=== PATIENT | male | born 1940 | race Two or more races ===

== ENCOUNTER 2025-02-01 23:41 | Inpatient (IN) | payer MEDICARE, OTHER ==
[~2025-02-01] VITALS: Ht 175.3 cm; Wt 68.0 kg
[2025-02-02] VITALS (11 sets, daily range): BP systolic 114–154; BP diastolic 49–103; TEMP 97.6–98.3; O2SAT 92–100
[2025-02-02 00:03] LABS: ABG BASE EXCESS -4.1 mmol/L (-2.0-3.0); ABG OXYGEN SATURATION 98.1 % (94.0-98.0); ABG PCO2 52.8 mmHg (35.0-48.0); ABG PH 7.257 (7.350-7.450); ABG PO2 145.3 mmHg (83.0-108.0); ABG TOTAL HEMOGLOBIN 9.0 G/dL (13.5-17.5); FLOW, BLOOD GAS 10.00 L/min (0.00-30.00); SITE, ABG RIGHT BRACHIAL
[2025-02-02] MEDS ORDERED: MAGN400O21 PO (00:23)
[2025-02-02] MEDS ORDERED: DOCU100C36 PO (00:23)
[2025-02-02] MEDS ORDERED: ALLO100T PO (00:23)
[2025-02-02] MEDS ORDERED: EZET10TA15 PO (00:23)
[2025-02-02] MEDS ORDERED: ISOS60TA72 PO (00:23)
[2025-02-02] MEDS ORDERED: LOPE2CAP40 PO (00:23)
[2025-02-02] MEDS ORDERED: DUTA0.5C2 PO (00:23)
[2025-02-02] MEDS ORDERED: OMEP40CA21 PO (00:23)
[2025-02-02] MEDS ORDERED: INSU100V39 SQ (00:23)
[2025-02-02] MEDS ORDERED: DOCU100T2 PO (00:23)
[2025-02-02] MEDS ORDERED: FERR325T24 PO (00:23)
[2025-02-02] MEDS ORDERED: TAMS-12 PO (00:23)
[2025-02-02] MEDS ORDERED: CARV3.12 PO (00:23)
[2025-02-02] MEDS ORDERED: ACET325C7 PO (00:23)
[2025-02-02] MEDS ORDERED: ERGO500093 PO (00:23)
[2025-02-02] MEDS ORDERED: CITA20TA19 PO (00:23)
[2025-02-02] MEDS ORDERED: ONDA4TAB5 PO (00:23)
[2025-02-02] MEDS ORDERED: APIX2.5T PO (00:23)
[2025-02-02] MEDS ORDERED: EMPA10TA PO (00:23)
[2025-02-02] MEDS ORDERED: NA P133E RC (00:23)
[2025-02-02 00:31] LABS: PLATELET COUNT (AUTO) 388 K/uL (150-450); RED BLOOD CELL COUNT(AUTO) 2.75 MIL/uL (4.5-6.0); RED CELL DISTRIBUTION WIDTH 19.1 % (11.5-15.0); WHITE BLOOD COUNT (AUTO) 9.0 K/uL (4.3-11.0)
[2025-02-02 00:40] LABS: CALCIUM, SERUM 7.2 mg/dL (8.5-10.1); CREATININE 2.1 mg/dL (0.6-1.3); SODIUM SERUM 141.0 mmol/L (136-145); UREA NITROGEN, BLOOD 62.0 mg/dL (7-18)
[2025-02-02 00:46] LABS: ASPARTATE AMINOTRANSFERASE 73.0 U/L (15-37); TOTAL PROTEIN, SERUM 4.3 g/dL (6.4-8.2)
[2025-02-02 00:49] LABS: LACTIC ACID 0.5 mmol/L (0.4-2.0)
[2025-02-02 00:56] LABS: INR 1.47 (0.91-1.10)
[2025-02-02] MEDS ORDERED: CEFEPIME 1 GM VIAL ONE (00:59)
[2025-02-02 01:05] LABS: APPEARANCE,URINE SLIGHTLY CLOUDY (CLEAR); BLOOD, URINE 3+ Ery/uL (NEGATIVE); LEUKOCYTE ESTERASE ,URINE 2+ (NEGATIVE); NITRITE, URINE POSITIVE (NEGATIVE); UGLUCOSE 2+ mg/dL (NEGATIVE)
[2025-02-02] MEDS: CEFEPIME 1 GM in IV D5W 50 ML IV ONE (01:14)
[2025-02-02] MEDS ORDERED: FUROSEMIDE 40 MG/4 ML VIAL ONE ×2 (01:17→10:41)
[2025-02-02] MEDS: FUROSEMIDE 40 MG/4 ML VIAL IV ONE (01:18)
[2025-02-02 01:28] LABS: ADD URINE CULTURE YES; SQUAMOUS EPITHELIAL CELL,UR 0-2 /HPF (None Seen)
[2025-02-02] MEDS ORDERED: DOSING PER PHARMACY-CEFEPIME IVPB XX PRN (02:00)
[2025-02-02] MEDS ORDERED: MAG HYDROX/AL HYDROX/SIMETH 30 ML UDC PO PRN (02:00)
[2025-02-02] MEDS ORDERED: ONDANSETRON HCL/PF 4 MG/2 ML VIAL IVP PRN (02:00)
[2025-02-02] MEDS ORDERED: MAGNESIUM HYDROXIDE 30 ML UDC PO PRN (02:00)
[2025-02-02] MEDS ORDERED: ACETAMINOPHEN 325 MG TABLET PO PRN (02:00)
[2025-02-02] MEDS ORDERED: HEPARIN SODIUM, PORCINE 5000 UNITS/1 ML VIAL ONE (02:41)
[2025-02-02] MEDS: HEPARIN SODIUM, PORCINE 5000 UNITS/1 ML VIAL SQ SCH (02:45)
[2025-02-02 02:59] LABS: ABG BASE EXCESS -2.0 mmol/L (-2.0-3.0); ABG OXYGEN SATURATION 97.9 % (94.0-98.0); ABG PCO2 47.1 mmHg (35.0-48.0); ABG PH 7.327 (7.350-7.450); ABG PO2 138.9 mmHg (83.0-108.0); ABG TOTAL HEMOGLOBIN 9.7 G/dL (13.5-17.5); SITE, ABG RIGHT BRACHIAL
[2025-02-02] MEDS ORDERED: ALBUTEROL HALF STRENGTH 1.25 MG/3 ML VIAL.NEB NEB PRN (04:00)
[2025-02-02] MEDS ORDERED: IPRATROPIUM NEB FS 0.5 MG/2.5 ML AMPUL.NEB NEB PRN ×2 (04:00→09:53)
[2025-02-02] MEDS: ALBUTEROL HALF STRENGTH 1.25 MG/3 ML VIAL.NEB NEB SCH (04:00)
[2025-02-02] MEDS: IPRATROPIUM NEB FS 0.5 MG/2.5 ML AMPUL.NEB NEB SCH ×2 (04:36→10:00)
[2025-02-02 05:34] LABS: PLATELET COUNT (AUTO) 450 K/uL (150-450); RED BLOOD CELL COUNT(AUTO) 3.13 MIL/uL (4.5-6.0); RED CELL DISTRIBUTION WIDTH 19.9 % (11.5-15.0); WHITE BLOOD COUNT (AUTO) 11.2 K/uL (4.3-11.0)
[2025-02-02 05:45] LABS: CALCIUM, SERUM 7.5 mg/dL (8.5-10.1); CREATININE 2.2 mg/dL (0.6-1.3); PHOSPHORUS 3.9 mg/dL (2.5-4.9); SODIUM SERUM 140.0 mmol/L (136-145); UREA NITROGEN, BLOOD 64.0 mg/dL (7-18)
[2025-02-02] MEDS ORDERED: AMIN30LI66 PO (08:22)
[2025-02-02] MEDS ORDERED: ACET325T53 PO (08:22)
[2025-02-02] MEDS ORDERED: BISA10SU11 RC (08:22)
[2025-02-02] MEDS ORDERED: MAGN400O6 PO (08:22)
[2025-02-02] MEDS ORDERED: MULT1TAB70 PO (08:22)
[2025-02-02] MEDS ORDERED: CRAN425C6 PO (08:22)
[2025-02-02 08:48] LABS: ABG BASE EXCESS -3.8 mmol/L (-2.0-3.0); ABG OXYGEN SATURATION 97.4 % (94.0-98.0); ABG PCO2 46.0 mmHg (35.0-48.0); ABG PH 7.306 (7.350-7.450); ABG PO2 111.0 mmHg (83.0-108.0); ABG TOTAL HEMOGLOBIN 10.0 G/dL (13.5-17.5); FRACTIONATED INSPIRED OXYGEN 40.0 %; SET RATE, BG 18.0
[2025-02-02] MEDS ORDERED: IPRATROPIUM NEB FS 0.5 MG/2.5 ML AMPUL.NEB ONE ×2 (08:54→12:12)
[2025-02-02] MEDS: FUROSEMIDE 100 MG/10 ML VIAL IV SCH (09:30)
[2025-02-02 09:50] LABS: IRON, SERUM 27.0 ug/dl (50-175)
[2025-02-02 10:15] LABS: LDL 27.0 mg/dL (0-99)
[2025-02-02] MEDS ORDERED: CEFEPIME 1 GM in IV D5W 50 ML IV SCH (13:00)
[2025-02-02] MEDS: CEFEPIME 2 GM in IV D5W 100 ML IV SCH (15:10)
[2025-02-02 15:11] LABS: CALCIUM, SERUM 8.0 mg/dL (8.5-10.1); CREATININE 2.5 mg/dL (0.6-1.3); SODIUM SERUM 139.0 mmol/L (136-145); UREA NITROGEN, BLOOD 73.0 mg/dL (7-18)
[2025-02-02] MEDS: BLOOD SUGAR DIAGNOSTIC 1 EACH STRIP IN SCH (16:28)
[2025-02-02] MEDS ORDERED: DEXTROSE 50%-WATER 50 ML DISP.SYRIN IV PRN (16:30)
[2025-02-02] MEDS: INSULIN REGULAR, HUMAN 100 UNIT/ML 3 ML VIAL SQ PRN (16:37)
[2025-02-02 17:53] LABS: ABG BASE EXCESS -3.1 mmol/L (-2.0-3.0); ABG OXYGEN SATURATION 91.5 % (94.0-98.0); ABG PCO2 36.4 mmHg (35.0-48.0); ABG PH 7.388 (7.350-7.450); ABG PO2 62.6 mmHg (83.0-108.0); ABG TOTAL HEMOGLOBIN 10.8 G/dL (13.5-17.5); FLOW, BLOOD GAS 1.00 L/min (0.00-30.00); FRACTIONATED INSPIRED OXYGEN 24.0 %; SITE, ABG RIGHT BRACHIAL
[2025-02-03] VITALS (33 sets, daily range): BP systolic 100–139; BP diastolic 41–79; TEMP 97.4–97.9; O2SAT 93–100
[2025-02-03 04:16] LABS: PLATELET COUNT (AUTO) 482 K/uL (150-450); RED BLOOD CELL COUNT(AUTO) 3.08 MIL/uL (4.5-6.0); RED CELL DISTRIBUTION WIDTH 18.8 % (11.5-15.0); WHITE BLOOD COUNT (AUTO) 9.6 K/uL (4.3-11.0)
[2025-02-03 04:36] LABS: ASPARTATE AMINOTRANSFERASE 72 U/L (15-37); CALCIUM, SERUM 7.8 mg/dL (8.5-10.1); CREATININE 2.7 mg/dL (0.6-1.3); PHOSPHORUS 3.9 mg/dL (2.5-4.9); SODIUM SERUM 140 mmol/L (136-145); TOTAL PROTEIN, SERUM 4.8 g/dL (6.4-8.2); UREA NITROGEN, BLOOD 79 mg/dL (7-18)
[2025-02-03 04:52] LABS: CREATINE KINASE, TOTAL 46 U/L (39-308)
[2025-02-03] MEDS: FUROSEMIDE 40 MG/4 ML VIAL IV SCH (09:14)
[2025-02-04] VITALS (22 sets, daily range): BP systolic 109–148; BP diastolic 44–68; TEMP 97.7–98.6; O2SAT 93–100
[2025-02-04 03:09] LABS: PLATELET COUNT (AUTO) 420 K/uL (150-450); RED BLOOD CELL COUNT(AUTO) 3.02 MIL/uL (4.5-6.0); RED CELL DISTRIBUTION WIDTH 18.9 % (11.5-15.0); WHITE BLOOD COUNT (AUTO) 9.2 K/uL (4.3-11.0)
[2025-02-04 03:20] LABS: ASPARTATE AMINOTRANSFERASE 59.0 U/L (15-37); CALCIUM, SERUM 7.8 mg/dL (8.5-10.1); PHOSPHORUS 4.8 mg/dL (2.5-4.9); SODIUM SERUM 141.0 mmol/L (136-145); TOTAL PROTEIN, SERUM 4.6 g/dL (6.4-8.2)
[2025-02-04 03:27] LABS: CREATININE 2.7 mg/dL (0.6-1.3)
[2025-02-04 03:38] LABS: UREA NITROGEN, BLOOD 89.0 mg/dL (7-18)
[2025-02-04] MEDS: FUROSEMIDE 100 MG/10 ML VIAL IV SCH (11:11)
[2025-02-05] VITALS (18 sets, daily range): BP systolic 119–135; BP diastolic 48–54; TEMP 97.5–98.4; O2SAT 89–100
[2025-02-05] MEDS ORDERED: DEXTROSE 50%-WATER 50 ML DISP.SYRIN IV PRN ×2 (00:30→14:00)
[2025-02-05] MEDS: *INSULIN REGULAR(HUMULIN R)HUM 100 UNIT/ML VIAL SQ PRN (00:43)
[2025-02-05 01:11] LABS: PTH, INTACT 48 pg/mL (15-65)
[2025-02-05 06:31] LABS: PLATELET COUNT (AUTO) 450 K/uL (150-450); RED BLOOD CELL COUNT(AUTO) 3.12 MIL/uL (4.5-6.0); RED CELL DISTRIBUTION WIDTH 18.7 % (11.5-15.0); WHITE BLOOD COUNT (AUTO) 8.3 K/uL (4.3-11.0)
[2025-02-05 06:43] LABS: ASPARTATE AMINOTRANSFERASE 53.0 U/L (15-37); CALCIUM, SERUM 7.4 mg/dL (8.5-10.1); CREATININE 2.8 mg/dL (0.6-1.3); PHOSPHORUS 3.8 mg/dL (2.5-4.9); SODIUM SERUM 139.0 mmol/L (136-145); TOTAL PROTEIN, SERUM 4.6 g/dL (6.4-8.2)
[2025-02-05 07:01] LABS: UREA NITROGEN, BLOOD 96.0 mg/dL (7-18)
[2025-02-05] MEDS: BLOOD SUGAR DIAGNOSTIC 1 EACH STRIP VI SCH (07:43)
[2025-02-05] MEDS: INSULIN REGULAR, HUMAN 100 UNIT/ML 3 ML VIAL SQ PRN (09:40)
[2025-02-05] MEDS: INSULIN GLARGINE, 100 UNIT/ML CARTRIDGE SQ SCH (12:16)
[2025-02-05 12:21] LABS: ABG BASE EXCESS 2.8 mmol/L (-2.0-3.0); ABG OXYGEN SATURATION 86.7 % (94.0-98.0); ABG PCO2 39.1 mmHg (35.0-48.0); ABG PH 7.455 (7.350-7.450); ABG PO2 52.6 mmHg (83.0-108.0); ABG TOTAL HEMOGLOBIN 10.3 G/dL (13.5-17.5); FRACTIONATED INSPIRED OXYGEN 21.0 %; SITE, ABG LEFT BRACHIAL
[2025-02-05 13:19] LABS: CALCIUM, SERUM 7.2 mg/dL (8.5-10.1); CREATININE 2.8 mg/dL (0.6-1.3); SODIUM SERUM 134.0 mmol/L (136-145)
[2025-02-05] MEDS: GLUCERNA SHAKE 237 ML CAN PO SCH (13:24)
[2025-02-05 13:25] LABS: UREA NITROGEN, BLOOD 96.0 mg/dL (7-18)
[2025-02-05 14:07] LABS: *SPE A/G RATIO 1.6 (0.7-1.7); *SPE ALBUMIN 2.8 g/dL (2.9-4.4); *SPE ALPHA-1-GLOBULIN 0.2 g/dL (0.0-0.4); *SPE ALPHA-2-GLOBULIN 0.3 g/dL (0.4-1.0); *SPE BETA GLOBULIN 0.5 g/dL (0.7-1.3); *SPE GLOBULIN, TOTAL 1.7 g/dL (2.2-3.9); *SPE M-SPIKE Not Observed g/dL (Not Observed); *SPE PROTEIN TOTAL 4.5 g/dL (6.0-8.5); *SPEGAMMA GLOBULIN 0.7 g/dL (0.4-1.8)
[2025-02-05] MEDS: INSULIN ASPART/LISPRO 100 UNIT/ML CARTRIDGE SQ PRN (14:22)
[2025-02-05] MEDS: BLOOD SUGAR DIAGNOSTIC 1 EACH STRIP IN SCH (14:22)
[2025-02-05] MEDS: MEROPENEM 500 MG in IV NS 0.9% 50 ML IV SCH (14:23)
[2025-02-05 18:03] LABS: APPEARANCE,URINE CLEAR (CLEAR); BLOOD, URINE 2+ Ery/uL (NEGATIVE); LEUKOCYTE ESTERASE ,URINE NEGATIVE (NEGATIVE); NITRITE, URINE NEGATIVE (NEGATIVE); UGLUCOSE TRACE mg/dL (NEGATIVE)
[2025-02-05 18:08] LABS: CREATININE, URINE 77.1 MG/DL (30.0-125.0); URINE SODIUM, RANDOM 9.0 mmol/l (40-220); URINE TOTAL PROTEIN 62.7 mg/dL (0-11.9)
[2025-02-05 18:22] LABS: ADD URINE CULTURE YES
[2025-02-05 18:23] LABS: COARSE GRANULAR CASTS,URINE Few /LPF (None Seen); FINE GRANULAR CASTS,URINE Few /LPF (None Seen)
[2025-02-05 19:00] LABS: EOSINOPHIL,URINE None Seen
[2025-02-05] MEDS ORDERED: INSULIN GLARGINE, 100 UNIT/ML CARTRIDGE SQ SCH (22:00)
[2025-02-06] VITALS (13 sets, daily range): BP systolic 116–142; BP diastolic 46–82; TEMP 97.5–98.2; O2SAT 90–97
[2025-02-06] MEDS: BUMETANIDE INJ 4 MG in IV D5W 24 ML IV ONE (07:32)
[2025-02-06 09:46] LABS: APPEARANCE,URINE CLEAR (CLEAR); BLOOD, URINE 1+ Ery/uL (NEGATIVE); LEUKOCYTE ESTERASE ,URINE NEGATIVE (NEGATIVE); NITRITE, URINE NEGATIVE (NEGATIVE); UGLUCOSE NEGATIVE (NEGATIVE)
[2025-02-06 09:56] LABS: CREATININE, URINE 65.8 MG/DL (30.0-125.0); URINE SODIUM, RANDOM 26.0 mmol/l (40-220); URINE TOTAL PROTEIN 82.1 mg/dL (0-11.9)
[2025-02-06 10:38] LABS: ADD URINE CULTURE NO; SQUAMOUS EPITHELIAL CELL,UR None Seen /HPF (None Seen)
[2025-02-06 12:39] LABS: EOSINOPHIL,URINE None Seen
[2025-02-06 16:01] LABS: PLATELET COUNT (AUTO) 363 K/uL (150-450); RED BLOOD CELL COUNT(AUTO) 3.47 MIL/uL (4.5-6.0); RED CELL DISTRIBUTION WIDTH 18.0 % (11.5-15.0); WHITE BLOOD COUNT (AUTO) 12.2 K/uL (4.3-11.0)
[2025-02-06 16:19] LABS: ASPARTATE AMINOTRANSFERASE 116.0 U/L (15-37); CALCIUM, SERUM 7.3 mg/dL (8.5-10.1); CREATININE 2.6 mg/dL (0.6-1.3); PHOSPHORUS 3.4 mg/dL (2.5-4.9); SODIUM SERUM 133.0 mmol/L (136-145); TOTAL PROTEIN, SERUM 4.7 g/dL (6.4-8.2)
[2025-02-06 16:36] LABS: UREA NITROGEN, BLOOD 95.0 mg/dL (7-18)
== END 2025-02-06 16:35 | DRG 291 ==
LOC: ER 23:48 → MS IN 02-02 03:53 → ICU 02-02 13:05 → TELE1 02-04 16:40
PROC: 5A09357 Assistance with Respiratory Ventilation, Less than 24 Consecutive Hours, Continuous Positive Airway Pressure (ICD-10-PCS; principal; 2025-02-02)
PROC: 5A09357 Assistance with Respiratory Ventilation, Less than 24 Consecutive Hours, Continuous Positive Airway Pressure (ICD-10-PCS; 2025-02-03)
DX: I13.0 Hypertensive heart and chronic kidney disease with heart failure and stage 1 through stage 4 chronic kidney disease, or unspecified chronic kidney disease (principal); I50.41 Acute combined systolic (congestive) and diastolic (congestive) heart failure; J96.01 Acute respiratory failure with hypoxia; J96.02 Acute respiratory failure with hypercapnia; D68.9 Coagulation defect, unspecified; L89.622 Pressure ulcer of left heel, stage 2; T82.598A Other mechanical complication of other cardiac and vascular devices and implants, initial encounter; N17.9 Acute kidney failure, unspecified; B96.20 Unspecified Escherichia coli [E. coli] as the cause of diseases classified elsewhere; E11.22 Type 2 diabetes mellitus with diabetic chronic kidney disease; N39.0 Urinary tract infection, site not specified; J44.9 Chronic obstructive pulmonary disease, unspecified; D64.9 Anemia, unspecified; N18.9 Chronic kidney disease, unspecified; Z16.12 Extended spectrum beta lactamase (ESBL) resistance; Z95.1 Presence of aortocoronary bypass graft; N40.0 Benign prostatic hyperplasia without lower urinary tract symptoms; I25.10 Atherosclerotic heart disease of native coronary artery without angina pectoris; E87.5 Hyperkalemia; E78.5 Hyperlipidemia, unspecified; Y83.8 Other surgical procedures as the cause of abnormal reaction of the patient, or of later complication, without mention of misadventure at the time of the procedure; Y92.129 Unspecified place in nursing home as the place of occurrence of the external cause; L98.8 Other specified disorders of the skin and subcutaneous tissue; S71.002A Unspecified open wound, left hip, initial encounter; X58.XXXA Exposure to other specified factors, initial encounter; Y93.89 Activity, other specified; T81.89XA Other complications of procedures, not elsewhere classified, initial encounter
CPT/HCPCS: 36415; 36600; 71045-TC; 76770-TC; 80048-TC; 80053-TC; 80061-TC; 80076-TC; 81001; 82550-TC; 82570-TC; 82607-TC; 82728-TC; 82803-TC; 82962-TC; 83540-TC; 83605-TC; 83735-TC; 83880; 83970; 84100-TC; 84155; 84165; 84300-TC; 84439-TC; 84443-TC; 84484-TC; 85025-TC; 85730-TC; 87040-TC; 87081-TC; 87086-TC; 87186-TC; 92526; 92611; 93307-TC; 94760-TC; 94799-TC; 97110-TC; 97112-TC; 97530-TC; A4223; A6213; A6253; A6254; G0378; J0692; J1644; J1815; J1938; J2185; J2919; J3490; J7050; J7060